=== PATIENT | female | born 1950 | race Caucasian/White ===

== ENCOUNTER → 2019-06-30 | Outpatient (CLI) | payer MEDICARE, OTHER ==
--- NOTE | 2019-07-01 08:40 | KCIC ---
Examination: CT right shoulder without contrast, [facility] protocol. COMPARISON: None available TECHNIQUE: Axial CT images of the right shoulder performed without contrast. Coronal and sagittal reformats are performed Exposure: One or more of the following individualized dose reduction techniques were utilized for this examination: 1. Automated exposure control 2. Adjustment of the mA and/or kV according to patient size 3. Use of iterative reconstruction technique FINDINGS: There is severe joint space loss identified in the glenohumeral joint. Large osteophyte formation identified in the inferior aspect of the humerus head. Mild sclerotic changes identified in the humerus head and the glenoid region. Mild degenerative changes acromioclavicular joint. . The visualized right lung grossly appears unremarkable. IMPRESSION: Severe degenerative changes right glenohumeral joint done for preop planning. Electronically signed by: Rosalio Vasquez MD (07/01/2019 8:38 AM) [email or web address]
== END | disposition home or self-care (01) ==
LOC: KCIC CT 15:21
PROVIDERS: ATTEND Orthopaedic Surgery
DX: Z01.818 Encounter for other preprocedural examination (principal); M19.011 Primary osteoarthritis, right shoulder; M25.711 Osteophyte, right shoulder
CPT/HCPCS: 73200

== ENCOUNTER → 2019-08-17 | Outpatient (CLI) | payer MEDICARE ==
--- NOTE | 2019-08-17 16:44 | KCIC ---
MR of the right knee HISTORY: Right knee pain. Pain anterior. Swelling. TECHNIQUE: Routine multiplanar sequences are obtained. FINDINGS: Medial meniscus is torn and mildly subluxed from the joint compartment. No evidence of lateral meniscal tear. Anterior cruciate ligament is thin but appears intact. Posterior cruciate ligament intact. Medial collateral ligament intact. Iliotibial band unremarkable. Fibular collateral ligament, biceps femoris tendon and popliteus tendon are intact. Extensor mechanism intact. Small joint effusion. Small Weiss's cyst. Severe cartilage loss at the medial joint compartment. Minimal subchondral marrow edema and cystic change. Mild lateral compartment chondromalacia with marginal spurring. Severe chondromalacia of the patellofemoral joint, more so medially. Bone lesion within the lateral femoral metaphysis, marginating the growth plate scar, measures 2 cm diameter. Margins are slightly lobulated. Consists of lobulated hyperintense T2 signal with smaller punctate areas of internal low signal or calcification. The appearance and location are most compatible with an enchondroma. No aggressive bone destruction or aggressive bone lesion. No evidence of acute fracture. Complex soft tissue collection anteriorly, anterior to the patella and patellar tendon, measures 7 cm cephalocaudal by 7 cm wide by 1 cm AP. Heterogeneous T2 signal with some internal hyperintense T1 signal. Subchondral cystic-type change at the lateral aspect of the medial femoral condyle adjacent to the intracondylar notch. IMPRESSION: 1. Medial meniscal tear. 2. DJD. 3. Complex soft tissue collection along the anterior knee most likely a hematoma. Complex bursitis could be considered. Consider abscess if there are clinical signs of infection. Electronically signed by: Mike Comer MD (08/17/2019 4:41 PM) [id number]
== END | disposition home or self-care (01) ==
LOC: KCIC MRI 14:45
PROVIDERS: ATTEND Orthopaedic Surgery
DX: S83.241A Other tear of medial meniscus, current injury, right knee, initial encounter (principal); M17.11 Unilateral primary osteoarthritis, right knee; M85.661 Other cyst of bone, right lower leg; M94.261 Chondromalacia, right knee; M71.21 Synovial cyst of popliteal space [Baker], right knee; M25.461 Effusion, right knee; X58.XXXA Exposure to other specified factors, initial encounter; Y93.89 Activity, other specified; Y92.89 Other specified places as the place of occurrence of the external cause; Y99.8 Other external cause status
CPT/HCPCS: 73721